=== PATIENT | female | born 1985 | race African-American/Black ===

== ENCOUNTER 2017-09-08 12:27 | Emergency (ER) | payer SELFPAY ==
[2017-09-08 12:35] VITALS: BP 108/71; PULSE 80; TEMP 98.3; BMI 24.4
--- NOTE | 2017-09-08 14:10 | PDOC ---
History of Present Illness - General Chief Complaint: Urinary Problem Stated Complaint: POSSIBLE UTI Time Seen by Provider: 09/08/17 13:51 History Source: Patient Exam Limitations: No Limitations - History of Present Illness Initial Comments: 09/08/17 14:04 32 yr female with urinary urgency and frequency for 2 weeks. denies fever or chills no abd pain or diarrhea. no fever or chills. Past History - Past Medical History Allergies/Adverse Reactions: Allergies Allergy/AdvReac Type Severity Reaction Status Date / Time shellfish derived Allergy Verified 09/08/17 12:33 Home Medications: Ambulatory Orders Cephalexin Monohydrate [Keflex -] 500 mg PO BID #6 capsule 09/08/17 COPD: No - Suicide/Smoking/Psychosocial Hx Smoking History: Never smoked Have you smoked in the past 12 months: No Information on smoking cessation initiated: No Hx Alcohol Use: No Drug/Substance Use Hx: No Substance Use Type: None Abd/GI Specific PMHX - Complaint Specific PMHX Colitis: No Diverticulitis: No Gall Bladder Disease: No GERD: No Hepatitis: No Irritable Bowel Synd (IBS): No Pancreatitis: No GI Ulcer Disease: No Review of Systems - Review of Systems Able to Perform ROS?: Yes Is the patient limited Mongolian proficient: No Constitutional: No: Symptoms Reported HEENTM: No: Symptoms Reported Respiratory: No: Symptoms reported ABD/GI: No: Symptoms Reported : Yes: Symptoms Reported Musculoskeletal: No: Symptoms Reported Integumentary: No: Symptoms Reported, Change in Hair/Nails Neurological: No: Symptoms reported *Physical Exam - Vital Signs Last Vital Signs Temp Pulse Resp BP Pulse Ox 98.3 F 80 18 108/71 100 09/08/17 12:33 09/08/17 12:33 09/08/17 12:33 09/08/17 12:33 09/08/17 12:33 - Physical Exam General Appearance: Yes: Nourished, Appropriately Dressed HEENT: positive: EOMI, ROBBIE Respiratory/Chest: positive: Lungs Clear, Normal Breath Sounds. negative: Chest Tender Cardiovascular: positive: Regular Rhythm, Regular Rate Gastrointestinal/Abdominal: positive: Normal Bowel Sounds, Soft Lymphatic: negative: Adenopathy Musculoskeletal: positive: Normal Inspection, CVA Tenderness, CVA Tenderness (R) , CVA Tenderness (L) Extremity: positive: Normal Capillary Refill, Normal Inspection, Normal Range of Motion Integumentary: positive: Normal Color, Dry, Warm Neurologic: positive: Fully Oriented, Alert, Normal Mood/Affect, Normal Response , Motor Strength 5/5 Medical Decision Making - Medical Decision Making 09/08/17 18:32 cc: c/o urinary urgency and burning for 2 days neg nvd neg abd pain neg back pain LMP 2 weeks ago denies vaginal discharge will check urine r/o uti will send for GC/chlamydia *DC/Admit/Observation/Transfer Diagnosis at time of Disposition: Urinary tract infection Qualifiers: Urinary tract infection type: acute cystitis Hematuria presence: with hematuria Qualified Code(s): N30.01 - Acute cystitis with hematuria - Discharge Dispostion Disposition: HOME Condition at time of disposition: Stable - Prescriptions Prescriptions: Cephalexin Monohydrate [Keflex -] 500 mg PO BID #6 capsule - Referrals Referrals: Bjorn Campa MD [Staff Physician] - - Patient Instructions Additional Instructions: follow with your genetic coordinator or your primary care doctor for follow up drink at least 2 liters of water a day drink cranberry juice NOT the cocktail 8 ounces daily return to ER for any worsening symptoms - Post Discharge Activity
[2017-09-08 14:12] LABS: HCG,QUALITATIVE URINE NEGATIVE
[2017-09-08 14:16] LABS: URINE APPEARANCE SLCLOUDY; URINE BILIRUBIN NEGATIVE (NEGATIVE); URINE BLOOD 1+ (NEGATIVE); URINE COLOR YELLOW; URINE GLUCOSE (UA) NEGATIVE (NEGATIVE); URINE KETONE 1+ (NEGATIVE); URINE NITRITE NEGATIVE (NEGATIVE); URINE UROBILINOGEN NEGATIVE mg/dL (0.2-1.0)
[2017-09-08 14:20] LABS: URINE LEUK ESTERASE 3+ (NEGATIVE); URINE PROTEIN 1+ (NEGATIVE)
[2017-09-08 14:21] LABS: EPI CELLS FEW /HPF (FEW); URINE MUCUS MANY
== END 2017-09-08 14:33 | disposition home or self-care (01) ==
LOC: JERFT 12:27
DX: N30.01 Acute cystitis with hematuria (principal)
CPT/HCPCS: 36415; 81003; 81015; 84703; 87491; 87591; 99281-25